=== PATIENT | female | born 1990 | race Caucasian/White ===

== ENCOUNTER 2017-12-28 17:57 | Inpatient (IN) | payer MEDICAID ==
[2017-12-28] MEDS: LACTATED RINGER'S 1,000 ML IV ×2 (18:47→19:35)
[2017-12-28 18:56] LABS: ADD MAN DIFF? NO
[2017-12-28 18:58] LABS: BASOPHILS % 0.4 % (0.0-2.0); EOSINOPHILS % 0.2 % (0.0-7.0); HEMATOCRIT 34.2 % (37.0-47.0); HEMOGLOBIN 11.7 g/dl (12.0-16.0); LYMPHOCYTES # 2.3 10^3/ul (0.8-2.9); LYMPHOCYTES % 20.6 % (15.0-51.0); MEAN CORPUSCULAR HGB CONC 34.2 g/dl (32.0-37.0); MEAN CORPUSCULAR VOLUME 90.5 fl (82.0-101.0); MEAN PLATELET VOLUME 10.6 fl (7.4-10.4); MONOCYTE # 0.6 10^3/ul (0.3-0.9); NEUTROPHIL # 8.3 10^3/ul (1.6-7.5); PLATELET COUNT 216 10^3/UL (140-415); RED BLOOD COUNT 3.78 10^6/ul (4.20-5.40); RED CELL DISTRIBUTION WIDTH 13.3 % (11.5-14.5)
[2017-12-28 18:58] LABS: WHITE BLOOD COUNT 11.3 10^3/ul (4.8-10.8)
[2017-12-28] MEDS ORDERED: OXYTOCIN 30 UNITS/LR 500 ML IV ×2 (19:00→22:32)
[2017-12-28] MEDS ORDERED: CARBOPROST 250 MCG INJ IM ×2 (19:00→21:30)
[2017-12-28 19:22] LABS: INR 1.01; PROTIME 13.4 Sec (11.9-14.9)
[2017-12-28 19:23] LABS: PARTIAL THROMBOPLASTIN TIME 27.2 Sec (25.0-35.0)
[2017-12-28] MEDS ORDERED: BUPIVACAINE 0.75%/DEXT (SPINAL) 2 ML INJ (21:18)
[2017-12-28] MEDS ORDERED: METOCLOPRAMIDE 10 MG INJ (21:18)
[2017-12-28] MEDS ORDERED: ONDANSETRON 4 MG INJ (21:18)
[2017-12-28] MEDS ORDERED: KETOROLAC 30 MG INJ (21:18)
[2017-12-28] MEDS ORDERED: morphine SULFATE/PF (10 MG/10 ML) INJ (21:19)
[2017-12-28] MEDS ORDERED: METHYLERGONOVINE 0.2 MG INJ IM (21:30)
[2017-12-28] MEDS ORDERED: MISOPROSTOL 200 MCG TAB PR (21:30)
[2017-12-28] MEDS ORDERED: METHYLERGONOVINE 0.2 MG TAB PO (21:30)
[2017-12-28] MEDS ORDERED: OXYCODONE/ACETAMINOPHEN (5/325) TAB PO ×2 (21:30)
[2017-12-28] MEDS ORDERED: IBUPROFEN 800 MG TAB PO (22:00)
[2017-12-28] MEDS: CEFAZOLIN 2 GM/50 ML (PMX) 50 ML IV (22:29)
[2017-12-28] MEDS ORDERED: NALOXONE (0.4 MG/ML) INJ IV (22:30)
[2017-12-28] MEDS ORDERED: morphine (1 MG/ML) 10ML SYRINGE IV ×3 (22:30)
[2017-12-28] MEDS ORDERED: morphine 2 MG INJ IV (22:30)
[2017-12-28] MEDS ORDERED: KETOROLAC 30 MG INJ IV (22:30)
[2017-12-28] MEDS ORDERED: DIPHENHYDRAMINE 50 MG INJ IV ×2 (22:30)
[2017-12-28] MEDS ORDERED: ONDANSETRON 4 MG INJ IV (22:30)
[2017-12-28] MEDS ORDERED: CEFAZOLIN 1 GM INJ (22:32)
[2017-12-28] MEDS: OXYTOCIN 30 UNITS/LR 500 ML IV ×3 (22:36→23:54)
[2017-12-29] MEDS: METHYLERGONOVINE 0.2 MG INJ IM (00:03)
[2017-12-29] MEDS: MISOPROSTOL 200 MCG TAB PR (00:04)
[2017-12-29] MEDS: OXYTOCIN 30 UNITS/LR 500 ML IV ×2 (00:32→04:24)
[2017-12-29] MEDS: ONDANSETRON 4 MG INJ IV (00:40)
[2017-12-29] MEDS: DEXTROSE 5%-LR 1,000 ML IV ×4 (01:30→21:30)
[2017-12-29] MEDS: SENNA/DOCUSATE NA (8.6MG/50MG) TAB PO ×2 (09:51→21:04)
[2017-12-29 11:39] LABS: ADD MAN DIFF? NO
[2017-12-29 11:44] LABS: BASOPHILS % 0.2 % (0.0-2.0); EOSINOPHILS % 0.2 % (0.0-7.0); HEMATOCRIT 31.7 % (37.0-47.0); HEMOGLOBIN 10.8 g/dl (12.0-16.0); LYMPHOCYTES # 2.1 10^3/ul (0.8-2.9); LYMPHOCYTES % 16.1 % (15.0-51.0); MEAN CORPUSCULAR HEMOGLOBIN 30.3 pg (29.0-33.0); MEAN CORPUSCULAR HGB CONC 34.1 g/dl (32.0-37.0); MEAN PLATELET VOLUME 11.2 fl (7.4-10.4); MONOCYTE # 0.8 10^3/ul (0.3-0.9); MONOCYTES % 6.2 % (0.0-11.0); NEUTROPHIL # 9.8 10^3/ul (1.6-7.5); NEUTROPHILS % 76.8 % (39.0-77.0); PLATELET COUNT 181 10^3/UL (140-415); RED BLOOD COUNT 3.56 10^6/ul (4.20-5.40); RED CELL DISTRIBUTION WIDTH 13.2 % (11.5-14.5)
[2017-12-29 11:44] LABS: WHITE BLOOD COUNT 12.8 10^3/ul (4.8-10.8)
[2017-12-29] MEDS: IBUPROFEN 800 MG TAB PO (22:03)
[2017-12-29 22:19] LABS: RAPID PLASMA REAGIN NONREACTIVE (NR)
[2017-12-29] MEDS: OXYCODONE/ACETAMINOPHEN (5/325) TAB PO (22:30)
[2017-12-29] MEDS ORDERED: OXYCODONE/ACETAMINOPHEN (5/325) TAB PO (22:30)
[2017-12-30] MEDS: IBUPROFEN 800 MG TAB PO ×3 (05:57→21:47)
[2017-12-30] MEDS: OXYCODONE/ACETAMINOPHEN (5/325) TAB PO ×3 (06:30→21:47)
[2017-12-30] MEDS: SENNA/DOCUSATE NA (8.6MG/50MG) TAB PO ×2 (10:07→21:38)
[2017-12-31] MEDS: LANOLIN 7 GM TUBE TOP (02:20)
[2017-12-31] MEDS: IBUPROFEN 800 MG TAB PO ×2 (05:35→14:00)
[2017-12-31] MEDS: OXYCODONE/ACETAMINOPHEN (5/325) TAB PO (05:35)
[2017-12-31] MEDS: SENNA/DOCUSATE NA (8.6MG/50MG) TAB PO (09:22)
[2017-12-31] MEDS: MEASLES,MUMPS,RUBELLA VACCINE INJ SC* (09:22)
[2017-12-31] MEDS: DIPHTH/TET/ACEL PERTUSS (ADULT) 0.5 ML VIAL IM* (12:36)
== END 2017-12-31 15:14 | disposition home or self-care (01) | DRG 766 ==
LOC: L-D 17:57 → PP1 12-29 01:21 → L-D 21:36
PROVIDERS: Obstetrics & Gynecology
PROC: 10D00Z1 Extraction of Products of Conception, Low, Open Approach (ICD-10-PCS; principal; 2017-12-28 19:30)
DX: O34.211 Maternal care for low transverse scar from previous cesarean delivery (principal); Z3A.39 39 weeks gestation of pregnancy; Z37.0 Single live birth
CPT/HCPCS: 85025; 85610; 85730; 86592; 86850; 86900; 86901; 90715; 99464